=== PATIENT | female | born 1975 | race Hispanic/Latino ===

== ENCOUNTER 2020-02-21 00:18 | Emergency (ER) | payer MEDICAID, OTHER | END 2020-02-21 00:38 | LOC: EDH 00:18 | DX: Z02.83 Encounter for blood-alcohol and blood-drug test (principal) | CPT/HCPCS: 36415 ==

== ENCOUNTER 2024-02-01 12:50 | Emergency (ER) | payer MEDICAID, OTHER ==
[~2024-02-01] VITALS: Ht 162.6 cm; Wt 72.6 kg
[2024-02-01 13:36] LABS: BASOPHILS # (AUTO) 0.04 K/uL (0.00-0.20); BASOPHILS % (AUTO) 0.6 % (0.0-5.0); EOSINOPHILS % (AUTO) 2.8 % (0.0-8.0); HEMATOCRIT 43.7 % (36-48); IMMATURE GRANULOCYTE ABSOLUTE 0.02 K/uL (0-1); LYMPHOCYTES # (AUTO) 1.5 K/uL (1.0-4.8); LYMPHOCYTES % (AUTO) 21.4 % (21.0-51.0); MEAN CORPUSCULAR HEMOGLOBIN 32.2 pg (27.0-33.0); MEAN CORPUSCULAR HGB CONC 33.2 g/dL (32.0-36.0); MEAN CORPUSCULAR VOLUME 96.9 fL (79-99); MONOCYTES # (AUTO) 0.4 K/uL (0.1-1.0); MONOCYTES % (AUTO) 5.7 % (3.0-13.0); NEUTROPHILS # (AUTO) 4.9 K/uL (1.8-7.7); NEUTROPHILS % (AUTO) 69.2 % (40.0-77.0); PLATELET COUNT (AUTO) 265 K/uL (130-400); RED BLOOD CELL COUNT(AUTO) 4.51 MIL/uL (4.00-5.50); WHITE BLOOD COUNT (AUTO) 7.1 K/uL (4.8-10.8)
[2024-02-01 15:16] LABS: CREATININE 0.6 mg/dL (0.5-1.0); POTASSIUM 3.9 mmol/L (3.5-5.1)
[2024-02-01 18:30] VITALS: BP 103/54; PULSE 55; RESP 20; O2SAT 99
== END 2024-02-01 20:11 | disposition home or self-care (01) ==
LOC: EDH 12:50
DX: S09.90XA Unspecified injury of head, initial encounter (principal); T74.21XA Adult sexual abuse, confirmed, initial encounter; X94.0XXA Assault by shotgun, initial encounter; Y93.89 Activity, other specified; Y92.89 Other specified places as the place of occurrence of the external cause; Y99.8 Other external cause status
CPT/HCPCS: 36415; 70450; 80048; 81025; 85025